=== PATIENT | male | born 1980 | race American Indian/Alaskan Native ===

== ENCOUNTER 2017-11-28 12:44 | Emergency (ER) | payer OTHER ==
[2017-11-28 13:02] VITALS: BP 151/96
[2017-11-28] MEDS ORDERED: TORADOL IM ONE (14:12)
[2017-11-28] MEDS ORDERED: PERCOCET 5/325 PO ONE (14:12)
--- NOTE | 2017-11-28 14:18 | Emergency Department Report ---
ED ENT HPI - General Chief complaint: Dental/Oral Stated complaint: BROKEN TOOTH/HEADACHE Time Seen by Provider: 11/28/17 13:53 Source: patient Mode of arrival: Ambulatory Limitations: No Limitations - History of Present Illness Initial comments: 37-year-old male with past medical history of migraines, hypertension, and [facility] with complaints of pain secondary to fractured tooth and dental caries. Patient has a scheduled to have dental surgery next week but he cannot take the pain. Pain is constant, throbbing, rated 10/10 intensity, worse with palpation and showing. Taken [id number] ibuprofen without relief. No fevers or facial swelling reported. - Related Data Previous Rx's Medication Instructions Recorded Last Taken Type Hydrochlorothiazide [HCTZ] 25 mg PO QDAY #30 tablet 03/04/15 Unknown Rx traMADol [Ultram 50 MG tab] 50 mg PO Q6HR PRN #25 tablet 04/24/15 Unknown Rx Amoxicillin [Trimox CAP] 500 mg PO Q8H #30 capsule 05/05/15 Unknown Rx Ondansetron [Zofran Odt] 4 mg SL Q6H PRN #8 tab.rapdis 05/21/15 Unknown Rx traMADol [Ultram 50 MG tab] 50 mg PO Q6HR PRN #25 tablet 05/21/15 Unknown Rx traMADol [Ultram 50 MG tab] 50 mg PO Q6HR PRN #20 tablet 12/25/15 Unknown Rx Ibuprofen [Motrin] 800 mg PO Q8HR PRN #30 tablet 11/28/17 Unknown Rx Penicillin Vk [Veetids TAB] 500 mg PO QID 7 Days tablet 11/28/17 Unknown Rx oxyCODONE /ACETAMINOPHEN [Percocet 1 tab PO Q6HR PRN #25 tablet 11/28/17 Unknown Rx 5/325 mg] Allergies Allergy/AdvReac Type Severity Reaction Status Date / Time No Known Allergies Allergy Verified 02/02/15 07:38 ED Dental HPI - General Chief complaint: Dental/Oral Stated complaint: BROKEN TOOTH/HEADACHE Time Seen by Provider: 11/28/17 13:53 Source: patient Mode of arrival: Ambulatory Limitations: No Limitations - Related Data Previous Rx's Medication Instructions Recorded Last Taken Type Hydrochlorothiazide [HCTZ] 25 mg PO QDAY #30 tablet 03/04/15 Unknown Rx traMADol [Ultram 50 MG tab] 50 mg PO Q6HR PRN #25 tablet 04/24/15 Unknown Rx Amoxicillin [Trimox CAP] 500 mg PO Q8H #30 capsule 05/05/15 Unknown Rx Ondansetron [Zofran Odt] 4 mg SL Q6H PRN #8 tab.rapdis 05/21/15 Unknown Rx traMADol [Ultram 50 MG tab] 50 mg PO Q6HR PRN #25 tablet 05/21/15 Unknown Rx traMADol [Ultram 50 MG tab] 50 mg PO Q6HR PRN #20 tablet 12/25/15 Unknown Rx Ibuprofen [Motrin] 800 mg PO Q8HR PRN #30 tablet 11/28/17 Unknown Rx Penicillin Vk [Veetids TAB] 500 mg PO QID 7 Days tablet 11/28/17 Unknown Rx oxyCODONE /ACETAMINOPHEN [Percocet 1 tab PO Q6HR PRN #25 tablet 11/28/17 Unknown Rx 5/325 mg] Allergies Allergy/AdvReac Type Severity Reaction Status Date / Time No Known Allergies Allergy Verified 02/02/15 07:38 ED Review of Systems ROS: Stated complaint: BROKEN TOOTH/HEADACHE Other details as noted in HPI Comment: All other systems reviewed and negative ED Past Medical Hx - Past Medical History Previous Medical History?: Yes Hx Hypertension: Yes Hx Headaches / Migraines: Yes (migraine) Additional medical history: pulmonic stenosis, 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 - Surgical History Past Surgical History?: Yes Additional Surgical History: left thumb - Social History Smoking Status: Never Smoker Substance Use Type: Alcohol, Prescribed - Medications Home Medications: Home Medications Medication Instructions Recorded Confirmed Last Taken Type Hydrochlorothiazide [HCTZ] 25 mg PO QDAY #30 tablet 03/04/15 Unknown Rx traMADol [Ultram 50 MG tab] 50 mg PO Q6HR PRN #25 tablet 04/24/15 Unknown Rx Amoxicillin [Trimox CAP] 500 mg PO Q8H #30 capsule 05/05/15 Unknown Rx Ondansetron [Zofran Odt] 4 mg SL Q6H PRN #8 tab.rapdis 05/21/15 Unknown Rx traMADol [Ultram 50 MG tab] 50 mg PO Q6HR PRN #25 tablet 05/21/15 Unknown Rx traMADol [Ultram 50 MG tab] 50 mg PO Q6HR PRN #20 tablet 12/25/15 Unknown Rx Ibuprofen [Motrin] 800 mg PO Q8HR PRN #30 tablet 11/28/17 Unknown Rx Penicillin Vk [Veetids TAB] 500 mg PO QID 7 Days tablet 11/28/17 Unknown Rx oxyCODONE /ACETAMINOPHEN [Percocet 1 tab PO Q6HR PRN #25 tablet 11/28/17 Unknown Rx 5/325 mg] ED Physical Exam - General Limitations: No Limitations - Other Other exam information: General: No limitations, patient is alert in no acute distress Head exam: Atraumatic, normocephalic Eyes exam: Normal appearance ENT: Moist mucous membrane, multiple missing teeth and dental caries. Left upper part of the mouth has multiple fractured teeth and missing teeth with tenderness. No signs of gum swelling. Neck exam: Normal inspection, full range of motion, no meningismus nontender Respiratory exam: Clear to auscultation bilateral, no wheezes, rales, crackles Cardiovascular: Normal rate and rhythm, normal heart sounds Abdomen: Soft, nondistended, and nontender, with normal bowel sounds, no rebound, or guarding Extremity: Full range of motion normal inspection no deformity Back: Normal Inspection, full range of motion, no tenderness Neurologic: Alert, oriented x3, cranial nerves intact, no motor or sensory deficit Psychiatric: normal affect, normal mood Skin: Warm, dry, intact ED Course Vital Signs 11/28/17 12:59 Temperature 98.2 F Pulse Rate 96 H Respiratory 20 Rate Blood Pressure 151/96 O2 Sat by Pulse 100 Oximetry - Reevaluation(s) Reevaluation #1: 11/28/17 14:15 Toradol and Percocet ED Medical Decision Making - Medical Decision Making Patient has dental caries with tooth fracture with associated pain. We'll be treated with antibiotics and pain medicine for home. Has a scheduled dental appointment for next week. - Differential Diagnosis dental caries, dental abscess, tooth fracture Critical Care Time: No Critical care attestation.: If time is entered above; I have spent that time in minutes in the direct care of this critically ill patient, excluding procedure time. ED Disposition Clinical Impression: Infected dental carries, Fractured tooth Disposition: [id number] TO HOME OR SELFCARE Is pt being admited?: No Does the pt Need Aspirin: No Condition: Stable Instructions: Dental Caries (ED), Toothache (ED) Additional Instructions: Take medication as prescribed. Return if symptoms worsen as indicated by your discharge instructions. Follow up with the dentist as scheduled. Prescriptions: Ibuprofen [Motrin] 800 mg PO Q8HR PRN #30 tablet PRN Reason: Pain oxyCODONE /ACETAMINOPHEN [Percocet 5/325 mg] 1 tab PO Q6HR PRN #25 tablet PRN Reason: Pain Penicillin Vk [Veetids TAB] 500 mg PO QID 7 Days tablet Referrals: your, dentist [Other] - 3-5 Days Time of Disposition: 14:20
== END 2017-11-28 14:29 | disposition home or self-care (01) ==
LOC: ED 12:44
DX: S02.5XXA Fracture of tooth (traumatic), initial encounter for closed fracture (principal); K02.9 Dental caries, unspecified; I10 Essential (primary) hypertension; G43.909 Migraine, unspecified, not intractable, without status migrainosus; X58.XXXA Exposure to other specified factors, initial encounter; Y93.89 Activity, other specified; Y92.89 Other specified places as the place of occurrence of the external cause; Y99.8 Other external cause status
CPT/HCPCS: 96372; 99282; J1885

== ENCOUNTER 2017-12-13 04:59 | Emergency (ER) | payer OTHER ==
[2017-12-13 05:22] VITALS: BP 148/84
--- NOTE | 2017-12-13 05:50 | Emergency Department Report ---
ED ENT HPI - General Chief complaint: Dental/Oral Stated complaint: TOOTHACHE Time Seen by Provider: 12/13/17 05:26 Source: patient Mode of arrival: Ambulatory Limitations: No Limitations - History of Present Illness Initial comments: This is a 37-year-old male nontoxic, well nourished in appearance, no acute signs of distress presents to the ED with c/o of left upper toothache 3 weeks. Patient denies following up with a dentist. Patient stated that pain radiates from his job to his left side of head. Patient otherwise denies any head trauma. Patient describes toothache as aching level of 8 out of 10. Patient denies any facial swelling. Patient denies any numbness, tingling, fever, chills, headache, stiff neck, abdominal pain, chest pain, shortness of breath. Patient denies any drug allergies or significant past medical history. MD complaint: tooth pain -: week(s) (3) Location: tooth # 1 - PAIN HERE Severity: mild Severity scale (0 -10): 8 Quality: aching Consistency: constant Improves with: none Worsens with: none Context- Dental: history of dental caries, poor dental care Associated Symptoms: gum swelling, toothache. denies: fever, cough, pain with swallowing, sore throat, tinnitus, hearing loss, discharge from ear, rhinorrhea - Related Data Previous Rx's Medication Instructions Recorded Last Taken Type Hydrochlorothiazide [HCTZ] 25 mg PO QDAY #30 tablet 03/04/15 Unknown Rx traMADol [Ultram 50 MG tab] 50 mg PO Q6HR PRN #25 tablet 04/24/15 Unknown Rx Amoxicillin [Trimox CAP] 500 mg PO Q8H #30 capsule 05/05/15 Unknown Rx Ondansetron [Zofran Odt] 4 mg SL Q6H PRN #8 tab.rapdis 05/21/15 Unknown Rx traMADol [Ultram 50 MG tab] 50 mg PO Q6HR PRN #25 tablet 05/21/15 Unknown Rx traMADol [Ultram 50 MG tab] 50 mg PO Q6HR PRN #20 tablet 12/25/15 Unknown Rx Ibuprofen [Motrin] 800 mg PO Q8HR PRN #30 tablet 11/28/17 Unknown Rx Penicillin Vk [Veetids TAB] 500 mg PO QID 7 Days tablet 11/28/17 Unknown Rx oxyCODONE /ACETAMINOPHEN [Percocet 1 tab PO Q6HR PRN #25 tablet 11/28/17 Unknown Rx 5/325 mg] Amoxicillin/K Clav Tab [Augmentin 1 tab PO Q12HR #20 tab 12/13/17 Unknown Rx 875 mg] Ibuprofen [Motrin] 600 mg PO Q8H PRN #30 tablet 12/13/17 Unknown Rx Allergies Allergy/AdvReac Type Severity Reaction Status Date / Time No Known Allergies Allergy Verified 12/13/17 05:18 ED Dental HPI - General Chief complaint: Dental/Oral Stated complaint: TOOTHACHE Time Seen by Provider: 12/13/17 05:26 Source: patient Mode of arrival: Ambulatory Limitations: No Limitations - Related Data Previous Rx's Medication Instructions Recorded Last Taken Type Hydrochlorothiazide [HCTZ] 25 mg PO QDAY #30 tablet 03/04/15 Unknown Rx traMADol [Ultram 50 MG tab] 50 mg PO Q6HR PRN #25 tablet 04/24/15 Unknown Rx Amoxicillin [Trimox CAP] 500 mg PO Q8H #30 capsule 05/05/15 Unknown Rx Ondansetron [Zofran Odt] 4 mg SL Q6H PRN #8 tab.rapdis 05/21/15 Unknown Rx traMADol [Ultram 50 MG tab] 50 mg PO Q6HR PRN #25 tablet 05/21/15 Unknown Rx traMADol [Ultram 50 MG tab] 50 mg PO Q6HR PRN #20 tablet 12/25/15 Unknown Rx Ibuprofen [Motrin] 800 mg PO Q8HR PRN #30 tablet 11/28/17 Unknown Rx Penicillin Vk [Veetids TAB] 500 mg PO QID 7 Days tablet 11/28/17 Unknown Rx oxyCODONE /ACETAMINOPHEN [Percocet 1 tab PO Q6HR PRN #25 tablet 11/28/17 Unknown Rx 5/325 mg] Amoxicillin/K Clav Tab [Augmentin 1 tab PO Q12HR #20 tab 12/13/17 Unknown Rx 875 mg] Ibuprofen [Motrin] 600 mg PO Q8H PRN #30 tablet 12/13/17 Unknown Rx Allergies Allergy/AdvReac Type Severity Reaction Status Date / Time No Known Allergies Allergy Verified 12/13/17 05:18 ED Review of Systems ROS: Stated complaint: TOOTHACHE Other details as noted in HPI Constitutional: denies: chills, fever Eyes: denies: eye pain, eye discharge, vision change ENT: dental pain. denies: ear pain, throat pain Respiratory: denies: cough, shortness of breath, wheezing Cardiovascular: denies: chest pain, palpitations Endocrine: no symptoms reported Gastrointestinal: denies: abdominal pain, nausea, diarrhea Genitourinary: denies: urgency, dysuria Musculoskeletal: denies: back pain, joint swelling, arthralgia Skin: denies: rash, lesions Neurological: denies: headache, weakness, paresthesias Psychiatric: denies: anxiety, depression Hematological/Lymphatic: denies: easy bleeding, easy bruising ED Past Medical Hx - Past Medical History Hx Hypertension: Yes Hx Headaches / Migraines: Yes (migraine) Additional medical history: pulmonic stenosis, 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 - Surgical History Additional Surgical History: left thumb - Social History Smoking Status: Never Smoker Substance Use Type: None - Medications Home Medications: Home Medications Medication Instructions Recorded Confirmed Last Taken Type Hydrochlorothiazide [HCTZ] 25 mg PO QDAY #30 tablet 03/04/15 Unknown Rx traMADol [Ultram 50 MG tab] 50 mg PO Q6HR PRN #25 tablet 04/24/15 Unknown Rx Amoxicillin [Trimox CAP] 500 mg PO Q8H #30 capsule 05/05/15 Unknown Rx Ondansetron [Zofran Odt] 4 mg SL Q6H PRN #8 tab.rapdis 05/21/15 Unknown Rx traMADol [Ultram 50 MG tab] 50 mg PO Q6HR PRN #25 tablet 05/21/15 Unknown Rx traMADol [Ultram 50 MG tab] 50 mg PO Q6HR PRN #20 tablet 12/25/15 Unknown Rx Ibuprofen [Motrin] 800 mg PO Q8HR PRN #30 tablet 11/28/17 Unknown Rx Penicillin Vk [Veetids TAB] 500 mg PO QID 7 Days tablet 11/28/17 Unknown Rx oxyCODONE /ACETAMINOPHEN [Percocet 1 tab PO Q6HR PRN #25 tablet 11/28/17 Unknown Rx 5/325 mg] Amoxicillin/K Clav Tab [Augmentin 1 tab PO Q12HR #20 tab 12/13/17 Unknown Rx 875 mg] Ibuprofen [Motrin] 600 mg PO Q8H PRN #30 tablet 12/13/17 Unknown Rx ED Physical Exam - General Limitations: No Limitations General appearance: alert, in no apparent distress - Head Head exam: Present: atraumatic, normocephalic - Eye Eye exam: Present: normal appearance Pupils: Present: normal accommodation - ENT ENT exam: Present: mucous membranes moist, TM's normal bilaterally, normal external ear exam - Expanded ENT Exam Expanded Ear exam: Present: normal external inspection Mouth exam: Present: normal external inspection, tongue normal. Absent: drooling, trismus, muffled voice, tongue elevation, laceration Teeth exam: Present: dental caries, fractured tooth #, dental tenderness #, gingival enlargement, other (No facial swelling. ) Throat exam: Positive: normal inspection. Negative: tonsillar erythema, tonsillomegaly, tonsillar exudate, R peritonsillar mass, L peritonsillar mass - Neck Neck exam: Present: normal inspection - Respiratory Respiratory exam: Present: normal lung sounds bilaterally. Absent: respiratory distress - Cardiovascular Cardiovascular Exam: Present: regular rate, normal rhythm. Absent: systolic murmur, diastolic murmur, rubs, gallop - GI/Abdominal GI/Abdominal exam: Present: soft, normal bowel sounds - Rectal Rectal exam: Present: deferred - Extremities Exam Extremities exam: Present: normal inspection - Back Exam Back exam: Present: normal inspection - Neurological Exam Neurological exam: Present: alert, oriented X3 - Psychiatric Psychiatric exam: Present: normal affect, normal mood - Skin Skin exam: Present: warm, dry, intact, normal color. Absent: rash ED Course Vital Signs 12/13/17 05:19 Temperature 98.4 F Pulse Rate 74 Respiratory 18 Rate Blood Pressure 148/84 O2 Sat by Pulse 100 Oximetry - Reevaluation(s) Reevaluation #1: 12/13/17 05:47 Patient is speaking in full sentences with no signs of distress noted. ED Medical Decision Making - Medical Decision Making patient is discharged with Augmentin and Motrin. I ran [facility] where and indicates that patient has total of 66 narcotic prescriptions by 47 different providers due to this I will discharge patient home with Motrin. Patient was referred to Follow-up with a dentist in 3-5 days or if symptoms worsen and continue return to emergency room as soon as possible. At time of discharge, the patient does not seem toxic or ill in appearance. No acute signs of distress noted. Patient agrees to discharge treatment plan of care. No further questions noted by the patient. Critical care attestation.: If time is entered above; I have spent that time in minutes in the direct care of this critically ill patient, excluding procedure time. ED Disposition Clinical Impression: Dental caries, Gingivitis Disposition: TO HOME OR SELFCARE Is pt being admited?: No Does the pt Need Aspirin: No Condition: Stable Instructions: Dental Caries (ED), Gingivitis (ED) Additional Instructions: Follow-up with a dentist in 3-5 days or if symptoms worsen and continue return to emergency room as soon as possible. Prescriptions: Amoxicillin/K Clav Tab [Augmentin 875 mg] 1 tab PO Q12HR #20 tab Ibuprofen [Motrin] 600 mg PO Q8H PRN #30 tablet PRN Reason: Pain Referrals: PRIMARY CARE, [Primary Care Provider] - 3-5 Days SONIA REDDY [Registered Nurse] - 3-5 Days [facility] [Outside] - 3-5 Days
[2017-12-13] MEDS ORDERED: MOTRIN ONE (06:02)
[2017-12-13] MEDS ORDERED: MOTRIN PO ONE (06:04)
== END 2017-12-13 06:05 | disposition home or self-care (01) ==
LOC: ED 04:59
DX: K05.10 Chronic gingivitis, plaque induced (principal); I10 Essential (primary) hypertension; G43.909 Migraine, unspecified, not intractable, without status migrainosus
CPT/HCPCS: 99282